=== PATIENT | female | born 2000 ===

== ENCOUNTER → 2021-05-10 | Outpatient (CLI) | payer OTHER | LOC: MHCPAIN 09:32 | DX: M47.817 Spondylosis without myelopathy or radiculopathy, lumbosacral region (principal); M54.16 Radiculopathy, lumbar region; M53.3 Sacrococcygeal disorders, not elsewhere classified | CPT/HCPCS: G0463; J1100; Q9967 ==

== ENCOUNTER → 2021-05-10 | Outpatient (CLI) | payer OTHER | LOC: MHCPAIN 10:37 | DX: M47.817 Spondylosis without myelopathy or radiculopathy, lumbosacral region (principal); M54.16 Radiculopathy, lumbar region; M53.3 Sacrococcygeal disorders, not elsewhere classified ==

== ENCOUNTER → 2021-05-25 | Outpatient (CLI) | payer OTHER | LOC: MHCPAIN 14:43 | DX: M47.817 Spondylosis without myelopathy or radiculopathy, lumbosacral region (principal); M53.3 Sacrococcygeal disorders, not elsewhere classified; M54.16 Radiculopathy, lumbar region | CPT/HCPCS: G0463 ==

== ENCOUNTER → 2021-05-27 | Outpatient (CLI) | payer OTHER | LOC: MHCPAIN 07:55 | DX: M47.817 Spondylosis without myelopathy or radiculopathy, lumbosacral region (principal); M54.5 Low back pain; M53.3 Sacrococcygeal disorders, not elsewhere classified | CPT/HCPCS: J1100; Q9967 ==